=== PATIENT | female | born 1965 | race Caucasian/White ===

== ENCOUNTER → 2018-08-14 | Outpatient (CLI) | payer MEDICARE, MEDICAID | END | disposition home or self-care (01) | LOC: SURG 15:11 | PROVIDERS: ATTEND Anesthesiology Pain Medicine | DX: G43.819 Other migraine, intractable, without status migrainosus (principal); G43.711 Chronic migraine without aura, intractable, with status migrainosus; G89.0 Central pain syndrome; F11.90 Opioid use, unspecified, uncomplicated; G89.4 Chronic pain syndrome; J45.909 Unspecified asthma, uncomplicated; Z86.73 Personal history of transient ischemic attack (TIA), and cerebral infarction without residual deficits | CPT/HCPCS: 99215 ==